=== PATIENT | female | born 1950 | race Caucasian/White ===

== ENCOUNTER 2023-04-12 08:43 | Outpatient (OUT) | payer MEDICARE, OTHER, SELFPAY ==
[2023-04-12 09:11] LABS: Basophils Absolute Auto 0.1 10^3/uL (0.0-0.1); Basophils Percent Auto 1.4 % (0.2-2.0); Eosinophils Absolute Auto 0.1 10^3/uL (0.0-0.7); Eosinophils Percent Auto 3.4 % (0.9-7.0); Hematocrit 38.8 % (36.0-48.0); Hemoglobin 12.7 g/dL (12.0-16.0); Lymphocytes Absolute Auto 1.1 10^3/uL (1.2-3.8); Lymphocytes Percent Auto 31.9 % (20.5-60.0); Mean Corpuscular HGB Conc 32.7 g/dL (29.9-35.2); Mean Corpuscular Hemoglobin 31.6 pg (26.7-34.0); Mean Corpuscular Volume 96.5 fL (81.0-99.0); Mean Platelet Volume 10.3 fL (9.5-13.5); Monocytes Absolute Auto 0.5 10^3/uL (0.3-0.8); Monocytes Percent Auto 12.9 % (1.7-12.0); Neutrophils Absolute Auto 1.8 10^3/uL (1.4-6.5); Neutrophils Percent Auto 50.4 % (43.0-75.0); Platelet Count 230 10^3/uL (150-450); Red Blood Count 4.02 10^6/uL (4.20-5.40); Red Cell Distribution Width 13.5 % (11.0-15.0); White Blood Count 3.6 10^3/uL (4.0-11.0)
[2023-04-12 09:47] LABS: Alanine Aminotransferase 20 U/L (14-59); Albumin Globulin Ratio 0.9; Albumin Level 3.4 g/dL (3.4-5.0); Alkaline Phosphatase 65 U/L (46-116); Anion Gap 10.9; Aspartate Amino Transferase 26 U/L (15-37); BUN Creatinine Ratio 24.2; Bilirubin Total 0.7 mg/dL (0.2-1.0); Calcium 8.8 mg/dL (8.5-10.1); Carbon Dioxide 29.3 mmol/L (21.0-32.0); Chloride 106 mmol/L (98-107); Chol HDL Ratio 2.1; Cholesterol 160 mg/dL (<=200); Estimated GFR (African America >60 (>=60); Estimated GFR (Non-African Ame >60 (>=60); Globulin 3.7 g/dL; Glucose 85 mg/dL (74-106); HDL Cholesterol 75 mg/dL (40-60); Potassium 4.2 mmol/L (3.5-5.1); Sodium 142 mmol/L (136-145); Total Protein 7.1 g/dL (6.4-8.2); Triglycerides 31 mg/dL (<=150); VLDL CHOLESTEROL 6.2 mg/dL
== END 2023-04-12 08:44 ==
LOC: LAB 08:49
PROVIDERS: PCP Family Medicine; Visit Provider Nurse Practitioner Family
DX: I10 Essential (primary) hypertension (principal)
CPT/HCPCS: 36415; 80053; 80061; 85025

== ENCOUNTER 2025-06-07 06:56 | Outpatient (OUT) | payer MEDICARE, OTHER, SELFPAY ==
--- OUTSIDE RECORDS SUMMARY | 2025-05-28 09:15 | XMS_ITS | Encounter Summary ---
Author Organization [facility] Address [address] [place] [address] Care Team Providers Care Oncology Social Worker Name Role Phone Cathi Dumont MD Primary Care Provider [phone] Reason for Referral * Imaging (Routine) - Pending Review Specialty Diagnoses / Procedures Referred By Christiano pollard Referred To Contact Cardiology Diagnoses Edema of lower extremity Pulmonary hypertension (CMS/HCC) Nonrheumatic tricuspid valve regurgitation Procedures Transthoracic echo (TTE) complete Chiki Donohue MD [address] [place] [address] Phone: tel: fax: Referral ID Status Reason Start Date Expiration Date Visits Requested Visits Authorized [id number] Pending Review Perform Procedure 05/28/2025 05/28/2026 1 1 Encounter Details Date Type Department Care Team (Late st Contact Info) Description 05/28/2025 9:15 AM EDT Office Visit [facility] [address] [place] [address] Chiki Donohue MD [address] [place] [address] Essential (primary) hypertension (Primary Dx); Edema of lower extremity; Pulmonary hypertension (CMS/HCC); Nonrheumatic tricuspid valve regurgitation Social History Tobacco Use Types Packs/Day Years Used Date Smoking Tobacco: Never Smokeless Tobacco: Never Alcohol Use Standard Drinks/Week Comments Yes 0 (1 standard drink = 0.6 oz pur e alcohol) Occasional [place] Safety & Environment Answer Date Rec orded Fear of Current or Ex-Partner Not on file Emotionally Abused Not on file 12/30/2023 Physically Abused Not on file 12/30/2023 Sexually Abused Not on file 12/30/2023 Physically or Sexually Abused Not on file Comments Unknown Sex and Gender Information Value Date Recorded Sex Assigned at Female 05/16/2025 2:24 PM EDT Legal Sex Female 9:32 PM EDT Gender Identity Female 05/16/2025 2:24 PM EDT Sexual Orientation Heterosexual or Straight 07/2025 2:24 PM EDT documented as of this encounter Last Filed Vital Signs Vital Sign Reading Time Taken Comments Blood Pressure 146/80 05/28/2025 9:28 AM EDT Pulse 70 05/28/2025 9:28 AM EDT Temperature - - Respiratory Rate - - Oxygen Saturation 96% 05/28/2025 9:28 AM EDT Inhaled Oxygen Concentration - - Weight 120 kg (264 lb) 05/28/2025 9:28 AM EDT Height 170.2 cm (5' 7 ) 05/28/2025 9:28 AM EDT Body Mass Index 41.35 05/28/2025 9:28 AM EDT documented in this encounter Progress Notes * Chiki Donohue MD - 05/28/2025 9:15 AM EDT Images from the original note were not included. [place] [facility] Subjective Annel Johnson is a 74 y.o. year old female patient being seen for 1 year follow up hypertension. No recent labs/imaging. She denies chest pain and SOB. Has intermittent LLE edema, and she wears compression stockings almost daily. Patient Active Problem List Diagnosis Atypical chest pain Dyspnea on exertion Hypertensive disorder Basal cell carcinoma of left forehead Encounter for coordination of complex care Open head wound Skin cancer of forehead Family History Problem Relation Name Age of Onset Heart murmur Mother Heart failure Mother Heart murmur Brother Social History Tobacco Use Smoking status: Never Smokeless tobacco: Never Substance Use Topics Alcohol use: Yes Comment: Occasional Drug use: Never HPI Annel is seen in follow-up. This is the first time I am meeting her. She used to follow-up with Dr. Nayana Umanzor in our group. She is a 74-year-old woman with history of hypertension, shortness of breath with exertion with negative prior cardiac and pulmonary workup that improved with weight loss. Today she reports that she has been doing relatively well with no symptoms of chest pain. She denies shortness of breath at rest or with exertion however she does not overexert herself. She says thatshe takes her time taking stairs. She does have lower extremity edema, bilateral. She wears compression stockings for that. She denies palpitations. Review of Systems Constitutional: Negative. HENT: Negative. Eyes: Negative. Cardiovascular: Positive for leg swelling. Respiratory: Negative. Endocrine: Negative. Skin: Negative. Musculoskeletal: Negative. Gastrointestinal: Negative. Neurological: Negative. Psychiatric/Behavioral: Negative. All other systems reviewed and are negative. Objective Visit Vitals BP 146/80 (BP Location: Left wrist, Patient Position: Sitting) Pulse 70 Ht 1.702 m (5' 7 ) Wt 120 kg (264 lb) SpO2 96% BMI 41.35 kg/m?? Smoking Status Never BSA 2.38 m?? Physical Exam Constitutional: Appearance: She is well-developed. She is obese. She is not ill-appearing. HENT: Head: Normocephalic and atraumatic. Nose: Nose normal. Eyes: General: No scleral icterus. Pupils: Pupils are equal, round, and reactive to light. Neck: Thyroid: No thyromegaly. Vascular: No JVD. Cardiovascular: Rate and Rhythm: Normal rate and regular rhythm. Pulses: Radial pulses are 2+ on the right side and 2+ on the left side. Heart sounds: Murmur heard. Systolic (RUSB, LLSB) murmur is present with a grade of 2/6. No friction rub. No gallop. Pulmonary: Effort: Pulmonary effort is normal. No respiratory distress. Breath sounds: Normal breath sounds. No wheezing or rales. Chest: Chest wall: No tenderness. Abdominal: General: Bowel sounds are normal. There is no distension. Palpations: Abdomen is soft. Tenderness: There is no abdominal tenderness. Musculoskeletal: General: No swelling. Cervical back: Neck supple. Right lower le+ Pitting Edema present. Left lower le+ Pitting Edema present. Skin: General: Skin is warm and dry. Neurological: General: No focal deficit present. Mental Status: She is alert and oriented to person, place, and time. Psychiatric: Mood and Affect: Mood normal. Behavior: Behavior is cooperative. Judgment: Judgment normal. Allergies Allergies Allergen Reactions Penicillins Medications Current Outpatient Medications: hydroCHLOROthiazide 12.5 mg tablet, Take 1 tablet (12.5 mg) by mouth in the morning., Disp: 90 tablet, Rfl: 3 losartan (Cozaar) 50 mg tablet, Take 1 tablet (50 mg) by mouth in the morning., Disp: 90 tablet, Rfl: 3 Recent Labs Blood testing 04/12/2023: Hemoglobin 12.7, platelets 230, potassium 4.2, BUN 16, creatinine 0.66, EGFR more than 60, triglycerides 31, cholesterol 160, HDL 75, LDL 79. labs 03/30/2021 CBC normal Lipid profile-cholesterol 173, HDL 56, triglycerides 57 and LDL 105-fairly well controlled High-sensitivity troponin 15 and 14.1 normal proBNP 31 BUN 18, creatinine 0.78 Liver function normal ALT 20 AST 19, ALP 60 Imaging and other tests Echocardiogram 08/20/2021: Normal LVSF, EF 76% Mildly dilated RV and RA Mild to moderate TV regurgitation Mild mitral regurgitation Moderately elevated RT sided pressure RVSP 57- moderate pulm HTN No pericardial effusion Stress test with patient-treadmill Cardiolite on 04/17/2021: No acute or reversible ischemia Persistent, mildly decreased radiotracer activity within the anterior wall; breast attenuation artifact versus fixed ischemia. Attenuation artifact is suspected Normal wall motion and ejection fraction Treadmill portion-this is a normal treadmill exercise test without objective evidence of myocardialischemia. However the patient demonstrated below average exercise capacity with normal heart rate and blood pressure response to exercise. Hood treadmill score was 3 placing her in a moderate risk category. PFTs 09/25/2021: Spirometry, lung volumes and diffusion capacity within normal limits. Assessment/Plan Diagnoses and all orders for this visit: Essential (primary) hypertension - hydroCHLOROthiazide 12.5 mg tablet; Take 1 tablet (12.5 mg) by mouth in the morning. - losartan (Cozaar) 50 mg tablet; Take 1 tablet (50 mg) by mouth in the morning. - CBC and differential; Future - Comprehensive metabolic panel; Future - Lipid panel; Future Edema of lower extremity - Transthoracic echo (TTE) complete; Future Pulmonary hypertension (CMS/HCC) - Transthoracic echo (TTE) complete; Future Nonrheumatic tricuspid valve regurgitation - Transthoracic echo (TTE) complete; Future 1. Hypertension: This is not controlled. I will add losartan 50 mg once daily. Continue current hydrochlorothiazide 12.5 mg once daily. I will check a CBC, CMP and lipids in 2 weeks. I asked her to acquire a blood pressure machine and monitor blood pressure at home. Alternatively I told her that she can come to our office in 2 weeks for a blood pressure check. 2. Lower extremity edema: She has evidence of pulmonary hypertension by prior echocardiogram in 2020. In addition at that time she had mild to moderate tricuspid regurgitation with mildly dilated right ventricle and atrium. On exam today she has a significant murmur. In addition her dry lower extremity edema is significant. I explained to her that the above could represent diastolic heart failure. Prior BNP was within normal limits. I am going to check a follow-up echocardiogram to follow-up on her pulmonary hypertension, right ventricular function and tricuspid regurgitation. Once I obtain the result I can recommend further management. Meanwhile I asked her to continue wearing compression stockings. Once I obtain the results of the above testing and her follow-up blood pressure readings, I would recommend further management. For the time being I will set up a follow-up in 6 months. Follow up in about 6 months (around 11/28/2025). Chiki Donohue MD documented in this encounter Plan of Treatment Scheduled Orders Name Type Priority Associated Diagnoses Orde r Schedule Transthoracic echo (TTE) complete Echocardiography Routine Edema of lower extremity Pulmonary hypertension (CMS/HCC) Nonrheumatic tricuspid valve regurgitation Expected: 05/28/2025 (Approximate), Expires: 05/28/2027 CBC and differential Lab Routine Essential (primary) hypertension Expected: 06/11/2025 (Approximate), Expires: 05/28/2026 Comprehensive metabolic panel Lab Routine Essential (primary) hypertension Expected: 06/11/2025 (Approximate), Expires: 05/28/2026 Lipid panel Lab Routine Essential (primary) hypertension Expected: 06/11/2025 (Approximate), Expires: 05/28/2026 documented as of this encounter Visit Diagnoses Diagnosis Essential (primary) hypertension- Primary Unspecified essential hypertension Edema of lower extremity Pulmonary hypertension (CMS/HCC) Other chronic pulmonary heart diseases Nonrheumatic tricuspid valve regurgitation documented in this encounter Care Teams Oncology Social Worker Relationship Specialty Start Date End Date Cathi Dumont MD [address] [facility] #A PCP - General 10/08/22 documented as of this encounter
--- OUTSIDE RECORDS SUMMARY | 2025-06-07 06:58 | XMS_ITS | Encounter Summary ---
Author Organization [facility] Address [address] [place] [address] Phone Care Team Providers Care Trauma Manager Name Role Phone Unavailable Primary Care Provider Unavailabl e Encounter Details Date Type Department Care Team (Late st Contact Info) Description 03/09/2024 Community Orders Link [address] [address] Dominga Bertrand MD [address] [place] [id number] Basal cell carcinoma (BCC) of scalp (Primary Dx) Social History Tobacco Use Types Packs/Day Years Used Date Smoking Tobacco: Never Assessed Comments Unknown Sex and Gender Information Value Date Recorded Sex Assigned at Not on file Legal Sex Female 8:39 AM EDT Gender Identity Not on file Sexual Orientation Not on file documented as of this encounter Plan of Treatment Not on file documented as of this encounter Visit Diagnoses Diagnosis Basal cell carcinoma (BCC) of scalp- Primary documented in this encounter
--- OUTSIDE RECORDS SUMMARY | 2025-06-07 06:58 | XMS_ITS | Encounter Summary ---
Author Organization [facility] Address [address] [place] [address] Care Team Providers Care Wool Grader Name Role Phone Cathi Dumont MD Primary Care Provider [phone] Reason for Visit * Reason Comments Med Refill Encounter Details Date Type Department Care Team (Late st Contact Info) Description 10/10/2022 Refill [facility] Cardiology [address] [place] [phone] Linnette Whaley, ASSEMBLER TRUCK TRAILER [address] [place] [phone] Essential (primary) hypertension Social History Tobacco Use Types Packs/Day Years Used Date Smoking Tobacco: Never Smokeless Tobacco: Never Alcohol Use Standard Drinks/Week Comments Yes 0 (1 standard drink = 0.6 oz pur e alcohol) Occasional Comments Unknown Sex and Gender Information Value Date Recorded Sex Assigned at Female 05/16/2025 2:24 PM EDT Legal Sex Female 9:32 PM EDT Gender Identity Female 05/16/2025 2:24 PM EDT Sexual Orientation Heterosexual or Straight 07/2025 2:24 PM EDT COVID-19 Exposure Response Date Recorded In the last 10 days, have yo u been in contact with someone who was confirmed or suspected to have Coronavirus/COVID-19? No / Unsure 10/08/2022 9:13 AM EST documented as of this encounter Plan of Treatment Not on file documented as of this encounter Visit Diagnoses Diagnosis Essential (primary) hypertension Unspecified essential hypertension documented in this encounter Care Teams Wool Grader Relationship Specialty Start Date End Date Cathi Dumont MD [address] [place] [address] #A PCP - General 10/08/22 documented as of this encounter
--- OUTSIDE RECORDS SUMMARY | 2025-06-07 06:58 | XMS_ITS | Clinical Summary ---
Author Organization [facility] Address [address] [place] [address] Care Team Providers Care Box Blank Machine Operator Helper Name Role Phone Cathi Dumont MD Primary Care Provider [phone] Social History Tobacco Use Types Packs/Day Years Used Date Smoking Tobacco: Never Assessed Comments Unknown Sex and Gender Information Value Date Recorded Sex Assigned at Not on file Legal Sex Female 9:33 PM EDT Gender Identity Not on file Sexual Orientation Not on file Plan of Treatment Not on file [place] [address] [facility] [place] [address] Care Teams Box Blank Machine Operator Helper Relationship Specialty Start Date End Date Cathi Dumont MD PCP - General Family Medicine 03/20/24
--- OUTSIDE RECORDS SUMMARY | 2025-06-07 06:58 | XMS_ITS | Clinical Summary ---
Author Organization [facility] Address [address] [place] [address] Care Team Providers Care Retail Marketing Specialist Name Role Phone Cathi Dumont MD Primary Care Provider [phone] Allergies Active Allergy Reactions Criticality Noted Date Comments Penicillins 10/08/2022 Medications hydroCHLOROthiazi de 12.5 mg tabletIndications :Essential (primary) hypertension Take 1 tablet (12.5 mg) by mouth in the morning. 90 tablet 3 5 05/28/20 26 Active losartan (Cozaar) 50 mg tabletIndications :Essential (primary) hypertension Take 1 tablet (50 mg) by mouth in the morning. 90 tablet 3 5 05/28/20 26 Active hydroCHLOROthiazi de 12.5 mg tabletIndications :Essential (primary) hypertension Take 1 tablet (12.5 mg) by mouth in the morning. 90 tablet 3 4 05/28/20 25 Discontinu ed(Reorder ) Active Problems Problem Noted Date Diagnosed Date Basal cell carcinoma of left forehead 06/05/2024 Encounter for coordination of complex care 06/05 Open head wound 06/05/2024 Skin cancer of forehead 06/05/2024 Atypical chest pain 10/15/2021 Dyspnea on exertion 10/15/2021 Hypertensive disorder 06/16/2021 Encounters Date Type Department Care Team Description 05/28/2025 9:15 AM EDT Office Visit [facility] [address] [place] [phone] Chiki Donohue MD Essential (primary) hypertension (Primary Dx); Edema of lower extremity; Pulmonary hypertension (CMS/HCC); Nonrheumatic tricuspid valve regurgitation from Last 3 Months Family History Medical History Relation Name Comments Heart murmur Brother Heart failure Mother Heart murmur Mother Relation Name Status Comments Brother Mother Social History Tobacco Use Types Packs/Day Years Used Date Smoking Tobacco: Never Smokeless Tobacco: Never Tobacco Cessation:Counseling Given: Not Answered Alcohol Use Standard Drinks/Week Comments Yes 0 (1 standard drink = 0.6 oz pur e alcohol) Occasional [place] Safety & Environment Answer Date Rec orded [...] Heterosexual or Straight 07/2025 2:24 PM EDT Last Filed Vital Signs Vital Sign Reading [...] Mass Index 41.35 05/28/2025 9:28 AM EDT Plan of Treatment Health Maintenance Due Date Last Done Comments Medicare Annual Wellness (AWV) 1950 Depression Screening 1960 Adult Tetanus 1970 Zoster Vaccines (1 of 2) 1998 Fall Risk Screening 2013 COVID-19 Vaccine ( season) 2024 10/06/2021, 02/11/2021, 01/20/2021 Influenza Vaccine (#1) 2025 , 11/04/2023, 10/29/2022, Additional history exists Pneumococcal Vaccine: 50+ Years Completed 09/27/2017, 11/27/2015 HIB Vaccines Aged Out No longer eligi ble based on patient's age to complete this topic HPV Vaccines Aged Out No longer eligi ble based on patient's age to complete this topic IPV Vaccines Aged Out No longer eligi ble based on patient's age to complete this topic Meningococcal B Vaccine Aged Out No l onger eligible based on patient's age to complete this topic Meningococcal Vaccine Aged Out No baltazar rey eligible based on patient's age to complete this topic Rotavirus Vaccines Aged Out No longer eligible based on patient's age to complete this topic Insurance MEDICARE [id number] [place] [address] Care Teams Retail Marketing Specialist Relationship Specialty Start Date End Date Cathi Dumont MD [address] [facility] #A PCP - General 10/08/22
--- NOTE | 2025-06-07 07:03 | CA_ITS ---
Patient Name: HUSSEIN GILLILAND MR#: [id number] : 1950 Exam Date: 06/07/2025 Ordering Doctor: DR APARNA ELLINGTON M.D. ECHOCARDIOGRAM REPORT PROCEDURE: CA ECHO DOPPLER COMPLETE INDICATIONS: Lower extremity edema, HTN, TR COMPARISON: None. DESCRIPTION: COMPLETE ECHOCARDIOGRAM Real-time transthoracic echocardiography with 2D, M-mode, spectral and color flow Doppler performed. QUALITY: Technical quality was good. LEFT VENTRICLE: Normal chamber size. Mild concentric left ventricular hypertrophy. LV EF: Global left ventricular systolic function is hyperdynamic; visually estimated ejection fraction is 65 to 70%. No significant wall motion abnormalities. DIASTOLIC: Normal diastolic dysfunction. ATRIAL SEPTUM: Inadequately seen. LEFT ATRIUM: Normal chamber size. RIGHT ATRIUM: Moderate dilatation. RIGHT VENTRICLE: Mild dilatation. Normal right ventricular systolic function. TRICUSPID VALVE: Normal mobility and thickness. Moderate regurgitation. Mild pulmonary hypertension. RVSP 40mmHg. MITRAL VALVE: Normal mobility and thickness. No evidence of mitral valve stenosis. There is no mitral annular calcification. Mild mitral regurgitation. AORTIC VALVE: Normal appearance. Mildly calcified aortic valve. Mildly increased peak velocity with no evidence of aortic valve stenosis. Trivial aortic regurgitation. AORTIC ROOT: Normal diameter and appearance. Ascending aorta is normal in size. PULMONIC VALVE: Not well visualized. No stenosis. Trivial regurgitation. PERICARDIUM: Anterior free space; trivial effusion versus fat pad. IVC: Collapses with inspiration. Mild dilatation measuring 2.1cm. CONCLUSION: 1. Global left ventricular systolic function is hyperdynamic; visually estimated ejection fraction 65 to 70% 2. Mild left ventricular hypertrophy 3. Mildly dilated right ventricle with normal systolic function 4. Moderate right atrial dilatation 5. Normal diastolic function 6. Moderate tricuspid regurgitation 7. Mildly elevated right ventricular systolic pressure; RVSP 40 mmHg 8. Mild mitral regurgitation 9. Anterior free space; trivial effusion versus artifact Adult Echocardiography Procedure Report Left Ventricle LVEDD (3.7 - 5.6 cm): 4.40 cm LVESD (2.2 - 4.0 cm): 3.01 cm LVIVS thickness (0.6 - 1.2 cm): 1.09 cm LVPW thickness (0.5 - 1.0 cm): 1.07 cm e': 0.11 m/s E - e': 8.98 LVOT Max Gradient: 8.10 mm[Hg] LVOT Area (cm2): 1.42 m/s Peak Velocity (LVOT): 1.42 m/s Mean Velocity (LVOT): 0.94 m/s LVOT Diameter 2.04 cm Left Ventricular Ejection Fraction: 72.57 % Left Atrium LA Volume Index (2D A2C): 32.69 ml/m2 Left Atrium Systolic Dimension: 4.54 cm Mitral Valve MV E to A Ratio: 0.81 Mitral Valve A-Wave Peak Velocity: 1.25 m/s Mitral Valve E-Wave Peak Velocity: 1.01 m/s Right Ventricle RV Internal Diastolic Dimension: 3.96 cm Aorta AO Root Diam: 3.52 cm Ascending Ao Diam: 3.55 cm Aortic Valve AoV Area (Peak Balbir): 2.30 cm2, 2.36 cm2 AoV Area (VTI): 2.38 cm2, 2.26 cm2 Peak Velocity(Antegrade Flow): 1.97 m/s, 2.07 m/s Peak Gradient(Antegrade Flow): 15.50 mm[Hg], 17.07 mm[Hg] Mean Velocity(Antegrade Flow): 1.41 m/s, 1.41 m/s Mean Gradient(Antegrade Flow): 9.18 mm[Hg], 8.84 mm[Hg] Velocity Time Integral: 44.70 cm, 40.48 cm Tricuspid Valve Peak Velocity (Regurgitant Flow): 2.59 m/s, 2.45 m/s, 2.83 m/s, 2.71 m/s Pulmonic Valve Mean Gradient: 2.20 mm[Hg] Mean Velocity: 0.68 m/s Peak Velocity: 1.02 m/s, 1.06 m/s Peak Gradient: 4.20 mm[Hg], 4.53 mm[Hg] Right Atrium Right Atrium Systolic Pressure: 98.90 ml, 98.90 ml Dictated by: Luis E Kirby M.D. on 06/07/2025 at 12:17 Approved by: Luis E Kirby M.D. on 06/07/2025 at 12:23
== END 2025-06-07 06:57 | disposition home or self-care (01) ==
LOC: CARD 06:57
PROVIDERS: PCP Family Medicine; Visit Provider Internal Medicine Interventional Cardiology
DX: R60.0 Localized edema (principal); I27.20 Pulmonary hypertension, unspecified; I36.1 Nonrheumatic tricuspid (valve) insufficiency
CPT/HCPCS: 93306

== ENCOUNTER 2025-06-19 07:26 | Outpatient (OUT) | payer MEDICARE, OTHER, SELFPAY ==
[2025-06-19 07:59] LABS: Hematocrit 37.4 % (36.0-48.0); Hemoglobin 12.6 g/dL (12.0-16.0); Immature Granulocytes Abs Auto 0.01 10^3/uL (0.00-0.03); Immature Granulocytes Pct Auto 0.2 % (0.0-0.5); Lymphocytes Absolute Auto 1.6 10^3/uL (1.2-3.8); Mean Corpuscular HGB Conc 33.7 g/dL (29.9-35.2); Mean Corpuscular Hemoglobin 31.8 pg (26.7-34.0); Mean Corpuscular Volume 94.4 fL (81.0-99.0); Platelet Count 262 10^3/uL (150-450); Red Blood Count 3.96 10^6/uL (4.20-5.40); White Blood Count 5.4 10^3/uL (4.0-11.0)
[2025-06-19 08:42] LABS: Alanine Aminotransferase 19 U/L (14-59); Albumin Globulin Ratio 1.0; Albumin Level 3.5 g/dL (3.4-5.0); Alkaline Phosphatase 64 U/L (46-116); Anion Gap 13.7; Aspartate Amino Transferase 20 U/L (15-37); Blood Urea Nitrogen 20.0 mg/dL (7.0-18.0); Calcium 9.1 mg/dL (8.5-10.1); Carbon Dioxide 26.1 mmol/L (21.0-32.0); Chloride 106 mmol/L (98-107); Cholesterol 171 mg/dL (<=200); Estimated GFR (African America >60 (>=60 mL/min/1.73m^2); Estimated GFR (Non-African Ame >60 (>=60 mL/min/1.73m^2); Globulin 3.5 g/dL; Glucose 106 mg/dL (74-106); HDL Cholesterol 65 mg/dL (40-60); Potassium 3.8 mmol/L (3.5-5.1); Sodium 142 mmol/L (136-145); Total Protein 7.0 g/dL (6.4-8.2); Triglycerides 46 mg/dL (<=150); VLDL CHOLESTEROL 9.2 mg/dL
== END 2025-06-19 07:27 | disposition home or self-care (01) ==
LOC: LAB 07:28
PROVIDERS: PCP Family Medicine; Visit Provider Internal Medicine Interventional Cardiology
DX: I10 Essential (primary) hypertension (principal)
CPT/HCPCS: 36415; 80053; 80061; 85025